=== PATIENT | male | born 1955 | race Caucasian/White ===

== ENCOUNTER 2018-09-04 08:48 | Outpatient (CLI) | payer BC, SELFPAY ==
[2018-09-04 10:03] LABS: Abs Immature Grans 0.01 k/cumm (0.0-0.09); Absolute Basophil Count 0.01 k/cumm (0.0-0.2); Absolute Lymphocyte Count 1.04 k/cumm (1.2-3.4); Absolute Monocyte Count 0.34 k/cumm (0.11-0.7); Absolute Neutrophil Count 2.02 k/cumm (1.2-6.7); Basophils % 0.3; Eosinophils % 2.8; HCT 41.8 % (40.0-50.0); HGB 14.3 g/dL (13.5-17.5); Immature Grans % 0.3; Lymphocytes % 29.5; Mean Corp. HGB Concentration 34.2 g/dL (32.0-36.0); Mean Corpuscular Hemoglobin 30.1 pg (27.0-33.0); Mean Platelet Volume 9.7 fL (8.0-11.0); Monocytes % 9.7; Neutrophils % 57.4; Platelet Count 209 x1000/uL (130-400); RBC 4.75 m/cumm (4.50-6.00); White Blood Cell Count 3.52 k/cumm (4.4-10.8)
[2018-09-04 10:04] LABS: Bilirubin Negative (Negative); Blood Negative (Negative); Clarity Clear; Glucose Negative (Negative); Ketones Negative (Negative); Leukocyte Esterase Negative (Negative); Nitrite Negative (Negative); Urobilinogen 0.2 EU/dL (Up TO 0.2)
[2018-09-04 11:07] LABS: ALT 27 U/L (12-78); AST 20 U/L (15-37); Albumin 3.7 g/dL (3.4-5.0); Alkaline Phosphatase 99 U/L (46-116); Anion Gap 8.8 mmol/L (3-11); BUN 21 mg/dL (7-18); Bilirubin, Total 0.9 mg/dL (0.2-1.0); CO2 28.2 mmol/L (21.0-32.0); CREATININE 0.85 mg/dL (0.70-1.30); Calcium 9.3 mg/dL (8.5-10.1); Chloride 104 mmol/L (98-107); Cholesterol 207 mg/dL (50-200); Glucose 96 mg/dL (70-100); HDL Cholesterol 67 mg/dL (40-60); LDL CHOLESTEROL 125 mg/dL (<100); Potassium 4.3 mmol/L (3.5-5.1); Sodium 141 mmol/L (136-145); TSH 0.65 uIU/mL (0.358-3.74); Total Protein 6.8 g/dL (6.4-8.2); Triglyceride 106 mg/dL (30-150)
[2018-09-06 08:49] LABS: PSA, Screening 2.2 ng/ml (0-4.5)
[2018-09-06 09:13] LABS: Vitamin D 25 Total 71.2 ng/ml (30-100)
[2018-09-06 14:55] LABS: ANA Interpretation Negative (NEGAT)
[2018-09-08 15:07] LABS: Testosterone, Free 16.8 ng/dL (3.67-13.9); Testosterone, Total 561 ng/dL (240-950)
== END 2018-09-04 09:08 ==
PROVIDERS: PCP Naturopath; Visit Provider Naturopath
DX: E55.9 Vitamin D deficiency, unspecified (principal); N40.1 Benign prostatic hyperplasia with lower urinary tract symptoms; R53.83 Other fatigue; M25.511 Pain in right shoulder; Z13.220 Encounter for screening for lipoid disorders; Z13.9 Encounter for screening, unspecified; Z00.00 Encounter for general adult medical examination without abnormal findings; Z12.5 Encounter for screening for malignant neoplasm of prostate
CPT/HCPCS: 80053; 80061; 82306; 83721; 84153; 84402; 84403; 81003; 84443; 85025; 86038

== ENCOUNTER 2020-05-26 12:33 | Emergency (ER) | payer BC, SELFPAY ==
[2020-05-26 12:37] VITALS: BP 136/85; PULSE 69; RESP 15; TEMP 36.3; O2SAT 98
--- NOTE | 2020-05-26 12:40 | ED.GENADUL_ITS ---
Discharge Plan Disposition Patient Disposition: HOME Condition: Stable Discharge Details Chief Complaint: Laceration Clinical Impression: Puncture wound of hand Primary Care Provider: Mahogany Peñaloza ED Provider: Lashonda Capone Home Meds and New Rx's Prescriptions: New cephalexin [Keflex] 500 mg capsule 500 mg PO QID 7 Days Qty: 28 RF: 0 Discharge Instructions Instructions: Puncture Wound (ED) Additional Instructions: Keep wound clean and dry. Cover wound with bandage if risk of contamination. Otherwise you can keep the wound open to air if resting at home to allow edges to dry and heal. Take the antibiotics until finished. Follow up with your primary care doctor in 1 week as needed. Return to the emergency department with any worsening or new concerning sympto ms. Discharge Data Discharge Date/Time-TO BE ENTERED AT DEPARTURE: 05/26/20 13:10 Discharge Physician: Lashonda Capone Medical Decision Making 65-year-old male presents with puncture wound to his left hand sustained on a sharp nail from a board at home just prior to arrival. Tetanus given. He has a 2 x 2 millimeter puncture wound to the thenar eminence of his left hand. There is no bony deformity, significant tenderness, obvious foreign body or evidence of cellulitis. He was offered an x-ray but declines. Patient has history of shoulder and ankle replacements. Will treat with prophylactic antibiotics. His wound was soaked in saline and Betadine and dressed with bacitracin and pressure dressing. Bleeding controlled. Advised to follow up with the primary care doctor for re-evaluation. Usual and customary return precautions given prior to discharge. Medical Records Medical records reviewed: Yes I reviewed the patient's medical records. HPI General Mode of arrival: ambulatory . Date/Time Provider Initiated Documentation: 05/26/20 12:40 . Limitations to Documentation: no limitations . Information obtained by: patient . HPI Narrative: Patient is a 65yo M who presents to the ED w/ a complaint of a puncture wound to his left hand on a sharp nail in a board just prior to arrival. He denies any bony injury or foreign body. He states his tetanus is not up-to-date. He denies any other injuries. Related Data Home Medications Medication Instructions Recorded Confirmed cephalexin [Keflex] 500 mg PO QID 7 Days #28 cap 05/26/20 Previous Rx's Medication Instructions Recorded cephalexin [Keflex] 500 mg PO QID 7 Days #28 cap 05/26/20 Allergies Allergy/AdvReac Type Severity Reaction Status Date / Time morphine AdvReac Nausea Unverified 05/26/20 12:37 Review of Systems All systems reviewed & are unremarkable except as noted in HPI and below Constitutional Constitutional: Reports as per HPI, Denies chills and Denies fever(s) Eyes Eyes: Denies blurry vision ENT Ears, Nose, Mouth, and Throat: Denies dizziness, Denies sore throat and Denies throat swelling Cardiovascular Cardiovascular: Denies chest pain and Denies dyspnea Respiratory Respiratory: Denies cough and Denies dyspnea Gastrointestinal Gastrointestinal: Denies abdominal pain, Denies diarrhea and Denies vomiting Genitourinary Genitourinary: Denies hematuria and Denies dysuria Musculoskeletal Musculoskeletal: Denies back pain and Denies numbness Integumentary/Breasts Skin/Breast: Denies lesions and Denies rash Neurologic Neurologic: Denies dizziness, Denies localized weakness and Denies numbness Allergic/Immunologic Allergic/Immunologic: Denies throat swelling [facility], [facility] Medical History (Updated 05/26/20 @ 12:59 by Lashonda Capone DO) No significant past medical history (Acute) Surgical History (Updated 05/26/20 @ 12:54 by Lashonda Capone DO) H/O shoulder surgery (Chronic) History of ankle surgery (Acute) History of hernia repair (Chronic) Hx of cholecystectomy (Chronic) Social History Smoking/Tobacco Use Status: Former Tobacco Use Alcohol Intake: former Drug use: Never Do you feel safe at home: Yes Do you feel safe in your relationship?: Yes Exam Const General: cooperative, healthy appearing and no acute distress HENNM Head: normal to inspection Mouth: oral mucosae normal Eyes General: appearance normal, both eyes and all related structures Neck Neck: normal visual inspection Resp Effort & Inspection: normal respiratory effort and able to speak in complete sentences Cardio Rate: regular rate Skin General skin exam: no rashes or lesions noted Neuro General: patient alert, patient awake and patient oriented x3 Motor: muscle tone normal throughout Extrem General: full ROM and capillary refill normal Hand/finger images: 1. 2x2mm puncture wound to L thenar emminence with surrounding edema and tenderness. There is no bony deformity or foreign body noted. Psych Appearance: grossly normal Affect: normal affect
== END 2020-05-26 13:10 | disposition home or self-care (01) ==
PROVIDERS: Emergency Provider Physician Assistant; PCP Naturopath
DX: S61.432A Puncture wound without foreign body of left hand, initial encounter (principal); W45.0XXA Nail entering through skin, initial encounter; Z96.619 Presence of unspecified artificial shoulder joint
CPT/HCPCS: 90471; 99284; 99283

== ENCOUNTER 2021-07-04 04:02 | Outpatient (CLI) | payer MEDICARE, SELFPAY ==
[2021-07-04 12:33] LABS: Bilirubin Negative (Negative); Blood Negative (Negative); Clarity Clear (Clear); Glucose Negative (Negative); Ketones Negative (Negative); Leukocyte Esterase Negative (Negative); Nitrite Negative (Negative); Urobilinogen 0.2 EU/dL (Up TO 0.2)
[2021-07-04 22:16] LABS: PSA, Diagnostic 2.8 ng/mL (0.0-4.5)
== END 2021-07-04 04:03 | disposition home or self-care (01) ==
PROVIDERS: PCP Naturopath; Visit Provider Urology
DX: N40.1 Benign prostatic hyperplasia with lower urinary tract symptoms (principal)
CPT/HCPCS: 36415; 81003; 84153; 87086